=== PATIENT | male | born 1945 | race Caucasian/White ===

== ENCOUNTER → 2019-02-13 | Outpatient (CLI) | payer BC ==
[~2019-02-13] MED LIST: AMLO5TAB4 PO; ATOR20TA38 PO; LISI40TA3 PO; TRIA1CAP PO
--- NOTE | 2019-02-21 14:33 | SP ---
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 DESCRIPTION OF PROCEDURE: Routine EEG was recorded digitally. Lutvi-pv-admef and cufnv-rx-eal matthew ges were recorded and reviewed. All impedances were measured and recorded. Cap electrodes were plac ed in accordance to International 10-20 system of electrode placement. FINDINGS: Symmetrically distributed background activity of medium amplitude ranging in frequency bet ween 9 to 11 cycles per second was seen in the awake state. Photic stimulation produces normal drivi ng. Eye opening attenuates the background. Hyperventilation elicits no epileptiform activity. When the patient gets drowsy, background rhythm gets slightly less organized and occasional slower waves, 2 to 4 cycles per second were seen. No epileptiform transients were seen. No signs of ongoing electrographic seizures or lateralized slo wing. IMPRESSION: Normal study. Please correlate clinically. Dictated By: GAYATRI VILLANUEVA/DMITRY Conf#: [id number] DID#: [id number]
== END | disposition home or self-care (01) ==
LOC: EEG 10:39
PROVIDERS: ATTEND Family Medicine Adult Medicine
DX: G40.409 Other generalized epilepsy and epileptic syndromes, not intractable, without status epilepticus (principal); R55 Syncope and collapse
CPT/HCPCS: 95819